=== PATIENT | female | born 1955 ===

== ENCOUNTER 2018-12-29 14:53 | Outpatient (CLI) | payer MEDICAID | END 2018-12-29 14:54 | disposition home or self-care (01) | LOC: RAD 14:53 | DX: M81.0 Age-related osteoporosis without current pathological fracture (principal); M85.80 Other specified disorders of bone density and structure, unspecified site ==

== ENCOUNTER 2019-02-02 13:07 | Outpatient (CLI) | payer MEDICAID | END 2019-02-02 13:08 | disposition home or self-care (01) | LOC: RAD 13:07 ==